=== PATIENT | male | born 1975 | race Caucasian/White ===

== ENCOUNTER 2016-07-07 16:17 | Observation (INO) ==
[2016-07-07] MEDS ORDERED: DILTIAZEM 50 MG/10 ML VIAL IV STA (17:19)
--- NOTE | 2016-07-07 17:24 | EKG Report ---
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
--- NOTE | 2016-07-07 17:25 | Emergency Department Note ---
Arrival - Arrival Chief Complaint: Shortness of Breath Stated Complaint: sob,chest pain,low BP,high Pulse ED Nursing Triage Note: C/O SOB WITH HEART FEELING IT GOES FAST AND SLOWS DOWN. PT ALSO GOT DIZZY IN TRIAGE. Mode of Arrival: Wheelchair Limitations: No Limitations Source: Patient Time Seen by Provider: 07/07/16 17:19 - History of Present Illness HPI Narrative: This 40-year-old white male presents for a history of onset of sensation of rapid heartbeat and palpitations soon after waking this morning. The patient states he has had no prior history of tachyarrhythmias and in fact was seen by a physician 2 days ago where he was diagnosed with strep throat and begun on penicillin with no comment made on heart rate or rhythm. Of note the patient does have ADHD and is on Adderall. He attempted to resolve the issue by taking easy and resting however he had other symptoms arise including dizziness and difficulty formulating sentences from his thoughts. However, this is in the context of being very anxious and somewhat scared. At the moment he states expressing himself is not a problem. He denies any visual changes, headache, or focal deficits. Of note he does state since he was a young child, he has had periods of brief rapid heart irregularities but thought nothing of it, thinking this was just normal. He denies any shortness of breath, chest pain, nausea, vomiting, history of thyroid disorders, or illicit drug use. He currently is quite anxious but is otherwise in no acute distress. Onset (ago): hour(s) (patient presents 12 hours post onset of symptoms) Consistency: constant Allergies/Adverse Reactions: Allergies Allergy/AdvReac Type Severity Reaction Status Date / Time No Known Allergies Allergy Unverified 07/07/16 16:49 Home Medications: Home Medications Medication Instructions Recorded Confirmed Type Dextroamphetamine/Amphetamine 20 mg PO BID 07/07/16 07/07/16 History [Adderall 20 mg Tablet] Rabeprazole Sodium [Aciphex Tab] 20 mg PO DAILY 07/07/16 07/07/16 History Review of System - Review of System 12 point system: reviewed and no additional remarkable complaints except as stated - Review of System Constitutional: Present: as per HPI Respiratory: Present: as per HPI Cardiovascular: Present: as per HPI Genitourinary male: Present: as per HPI Neurological: Present: as per HPI Medical,Surgical,& Family Hx - Medical History Psychological: History of: ADHD (on Adderall) - Family History Family History: Reports;: Family Diabetes - Social History Smoking Status: Never smoker Frequency of Alcohol Use: Occasionally Type of Drug Use: None Marital Status: Single Lives With:: Spouse Functional capacity: independent ambulation Exam Physical Examination: GENERAL: Well developed, well nourished anxious white male in no acute distress. HEENT: Normocephalic. No trauma. Moist mucous membranes. EOMI. PERRLA. ENT clear NECK: Supple. No adenopathy. CARDIAC: Irregular tachycardia at 135. No murmurs. CHEST: Clear to auscultation. No respiratory distress. ABDOMEN: Soft. Nontender. Active bowel sounds. EXTREMITIES: No trauma. Normal ROM. No pedal edema. SKIN: No diaphoresis. No rash. NEURO: Alert. Oriented 3. Motor, sensory, vibratory intact. No focal deficits. Vital Signs: Vital Signs Temperature 98.8 F 07/07/16 16:49 Pulse Rate 118 H 07/07/16 16:49 Respiratory Rate 20 07/07/16 16:49 Blood Pressure 127/112 07/07/16 16:49 O2 Sat by Pulse Oximetry 98 07/07/16 16:49 Course - Reevaluation(s) Reevaluation #1: Discussed with patient the need for hospitalization given new-onset atrial fibrillation. - Consultations Consultation #1: Discussed with Dr. Pickett, cardiology, who will admit for further evaluation and treatment. Results - Labs CBC & BMP: 07/07/16 17:44 07/07/16 17:44 Labs: I have reviewed the laboratory and noted its normalcy. - Diagnostic Findings Procedure: Chest x-ray: image reviewed by me, report reviewed by me (acute disease but abnormal mediastinal contour on portable film), CT: image reviewed by me, report reviewed by me (no acute disease but air-fluid levels in the sphenoid and maxillary sinuses.) Disposition Clinical Impression: new-onset atrial fibrillation, sinusitis Case discussed with: patient Disposition: Still a Patient Condition: Stable Time of Disposition: 19:11
[2016-07-07] MEDS ORDERED: DILTIAZEM 50 MG/10 ML VIAL IV ONE (17:43)
--- NOTE | 2016-07-07 17:55 | CT Report ---
History is atrial fibrillation and aphasia The ventricles are normal in size No acute intracranial hemorrhage or mass effect seen The cervical or tonsils are at the foramen magnum. Streak artifact overlies the umer There is mucosal thickening and fluid in the sphenoid and maxillary sinuses Impression: Paranasal sinus disease without acute intracranial pathology seen PROCEDURE INTERPRETED AT [facility] DEPARTMENT OF RADIOLOGY Final Report Signed by: Dr. Demi Marcano
[2016-07-07 17:57] LABS: Basophils % 0.1 % (0.0-0.8); Eosinophils % 0.4 % (0.00-10.9); Hemoglobin 13.9 GM/DL (14.0-18.0); Immature Granulocytes % 0.4 %; Immature Granulocytes Absolute 0.03 #; Lymphocytes # 1.9 10*3/uL (1.4-4.0); Lymphocytes % 22.5 % (21.2-54.2); Mean Corpuscular HGB Conc 33.9 GM/DL (32-36); Mean Corpuscular Hemoglobin 29 PG (27-34); Mean Corpuscular Volume 86.3 FL (87-102); Mean Platelet Volume 9.3 FL (9.6-12.0); Monocytes # 0.5 10*3/uL (0.11-0.8); Monocytes % 6.3 % (1.7-12.7); Neutrophils # 5.9 10*3/uL (1.4-7.4); Neutrophils % 70.3 % (38.7-73.9); Platelet Count 229 10*3/uL (130-400); Red Blood Count 4.75 10*6/uL (3.8-5.5); Red Cell Distribution Width 11.9 % (9.3-17.3); White Blood Count 8.4 10*3/uL (4.5-13.71)
--- NOTE | 2016-07-07 17:57 | XRay Report ---
History is short of breath The heart is normal in size There is soft tissue fullness in the region the ascending aorta. Hilar contours felt to be related to vasculature No congestive failure or confluent infiltrates seen Impression: Mediastinal contour abnormality most likely related to prominence of the ascending aorta which can be seen with hypertension or sequelae of aortic valve disease. Upright PA and lateral chest film suggested. Comparison with any available prior studies would certainly be helpful as well PROCEDURE INTERPRETED AT [facility] DEPARTMENT OF RADIOLOGY Final Report Signed by: Dr. Demi Marcano
[2016-07-07 18:13] LABS: PT Patient Result 10.1 SECS; Partial Thromboplastin Time 26.4 SECS (0-40)
[2016-07-07] MEDS ORDERED: LEVOFLOXACIN 750 MG TABLET PO STA (18:13)
[2016-07-07] MEDS ORDERED: methylPREDNISolone SOD SUC 125 MG/2 ML VIAL IV STA (18:14)
[2016-07-07 18:24] LABS: Troponin I Only < 0.015 NG/ML (0.00-0.045)
[2016-07-07 18:30] LABS: Albumin 3.8 G/DL (3.4-5.0); Bilirubin,Total 0.6 MG/DL (0.2-1.0); Calcium 8.9 MG/DL (8.5-10.1); Osmolality,Calculated 287.7 MOS/KG (273-304); Potassium 4.2 MMOL/L (3.5-5.1); Thyroid Stimulating Hormone 1.43 uIU/ml (0.358-3.74); Total Protein 7.3 G/DL (6.4-8.3)
[2016-07-07] MEDS ORDERED: LEVOFLOXACIN 750 MG TABLET ONE (18:37)
[2016-07-07] MEDS ORDERED: methylPREDNISolone SOD SUC 125 MG/2 ML VIAL ONE (18:37)
--- NOTE | 2016-07-07 19:08 | XRay Report ---
Chest, 2 views History is mediastinal contour abnormality 07/07/2016 at 6:45 PM The heart is normal in size. Previously seen soft tissue density in the right superior mediastinum has a less pronounced appearance than the prior study. At least some of the residual density is felt be related to a prominent manubrium. Residual density in this area could be related to normal vasculature. No persistent soft tissue prominence in the right paratracheal stripe seen No acute infiltrate is seen impression: Prior soft tissue density at the right superior mediastinum has a much less prominent appearance and is now felt to be related to manubrium and normal vasculature. PROCEDURE INTERPRETED AT [facility] DEPARTMENT OF RADIOLOGY Final Report Signed by: Dr. Demi Marcano
[2016-07-07] MEDS ORDERED: ONDANSETRON 4 MG/2 ML VIAL IV PRN (19:14)
[2016-07-07] MEDS ORDERED: DILTIAZEM 100 MG VIAL.ADD IV ONE (19:32)
[2016-07-07] MEDS ORDERED: SODIUM CHLORIDE 0.9% 100 ML IV ONE (19:33)
[2016-07-07] MEDS ORDERED: DILTIAZEM INJ 100 MG in SODIUM CHLORIDE 0.9% 100 ML IV SCH (20:00)
[2016-07-07] MEDS ORDERED: MAGNESIUM SULF RIDER 2 GM in PREMIX 1 EACH IV ONE (21:03)
--- NOTE | 2016-07-07 21:21 | EKG Report ---
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
[2016-07-07] MEDS: DILTIAZEM 30 MG TABLET PO SCH (21:48)
[2016-07-07] MEDS: ASCORBIC ACID 500 MG TABLET PO SCH (21:49)
[2016-07-07] MEDS: LORazepam 1 MG TABLET PO SCH (23:07)
[2016-07-08 05:50] LABS: Calcium 8.9 MG/DL (8.5-10.1); Magnesium 2.1 MG/DL (1.8-2.4); Potassium 4.5 MMOL/L (3.5-5.1)
[2016-07-08] MEDS ORDERED: LEVOFLOXACIN 750 MG TABLET PO SCH ×2 (09:00)
[2016-07-08] MEDS: LORazepam 1 MG TABLET PO SCH (10:10)
[2016-07-08] MEDS: ASCORBIC ACID 500 MG TABLET PO SCH (10:10)
[2016-07-08] MEDS: DILTIAZEM 30 MG TABLET PO SCH (10:10)
--- NOTE | 2016-07-08 10:34 | Cardiology History & Physical ---
Assessment and Plan (1) Paroxysmal atrial fibrillation Status: Acute Assessment and plan: The patient converted back to sinus rhythm with the addition of magnesium and vitamin C to his medical regimen. I want to continue this as an outpatient. This is his first diagnosed episode of atrial fibrillation. He has a chads score of 0. We'll give him aspirin as stroke prophylaxis. I would like him to limit his caffeine intake. I would like for him to discuss alternative methods for treating his ADHD with his family physician, as the Adderall could increase the risk of him having an arrhythmia. I think he would benefit from stopping the proton pump inhibitor because this can interfere with magnesium absorption, and low magnesium can be associated with A. fib. He could use an H2 adria such as Zantac or Pepcid. Since he is converted back to sinus rhythm and is feeling well and think we can discharge him home and follow-up in a few weeks in the clinic. Current Visit: Yes (2) ADHD (attention deficit hyperactivity disorder) Status: Acute Current Visit: Yes (3) Insomnia Status: Acute Current Visit: Yes (4) GERD (gastroesophageal reflux disease) Status: Acute Current Visit: Yes History of Present Illness History of present illness: Mr. Mackey is a 40 year old male with a history of ADHD and esophageal reflux. He got admitted yesterday after he had onset of tachycardia and palpitations with heart rates around 150. He's had this on rare occasions in the past but would only last for a few minutes before resolving. When his symptoms didn't resolve he came into the emergency room was discovered to be in atrial fibrillation with rapid ventricular response. His symptoms were moderate to severe and lasted for several hours before improving with IV diltiazem in the emergency room. He had associated fatigue and dyspnea. He did not have any syncope, orthopnea, or peripheral edema. He has not had any anginal symptoms. He has no previously diagnosed episodes of atrial fibrillation. He denies any previous cardiovascular history. He does not have any history of hypertension or other cardiovascular medical problems. Overnight, the patient's rhythm converted back to normal sinus And he is now feeling completely back to normal. Of note, the patient does use caffeine, drinking 2-3 cups of coffee a day. He also takes Adderall in the evenings for ADD. This could also play a role. The patient is report that he doesn't sleep very well, but he doesn't have any specific symptoms of sleep apnea. This could also play a role. He recently started a proton pump inhibitor, which was given to him by an ENT specialist after he had some hoarseness after being intubated for a gallbladder surgery. Apparently there was some suspicion that he was having some reflux that was causing the hoarseness. The patient's magnesium was initially low, and is possible that the proton pump inhibitor could be limiting his absorption of magnesium. This also could play a role in his paroxysmal atrial fibrillation. Home Medications Medication Instructions Recorded Confirmed Type Dextroamphetamine/Amphetamine 20 mg PO BID 07/07/16 07/07/16 History [Adderall 20 mg Tablet] Rabeprazole Sodium [Aciphex Tab] 20 mg PO DAILY 07/07/16 07/07/16 History Allergies Allergy/AdvReac Type Severity Reaction Status Date / Time No Known Allergies Allergy Unverified 07/07/16 16:49 12 point system: reviewed and no additional remarkable complaints except as stated Medical,Surgical,& Family Hx - Medical History Psychological: History of: ADHD (on Adderall) Gastrointestinal: History of: GERD - Surgical History Neurologic Surgeries: Patient denies: Neurologic Surgery - Family History Family History: Reports;: Family Diabetes (father), Family Heart Disease ( mother HTN and MN), Family Stroke (father TIA) - Social History Smoking Status: Never smoker Frequency of Alcohol Use: Frequently Type of Drug Use: None Cardiology Physical Exam - Constitutional Vitals: Vital Signs Temp Pulse Resp BP Pulse Ox 98.9 F 83 20 126/71 99 07/08/16 08:00 07/08/16 08:00 07/08/16 08:00 07/08/16 08:00 07/08/16 08:00 Intake and Output 07/07/16 07/08/16 07/08/16 23:59 07:59 15:59 Intake Total 240 / 240 120 / 120 80 / 80 Output Total 300 / 300 Balance 240 / 240 -180 / -180 80 / 80 Intake: IV 80 / 80 Cardizem Inj 100 mg In Ns 80 / 80 100 ml @ 5 MG/HR 5 mls/ hr IV TITRATE [facility] Rx#: [id number] Oral 240 / 240 120 / 120 Output: Urine 300 / 300 Other: Voiding Method Urinal Urinal Weight 89.358 kg Exam: General: Appears well developed, well nourished, no apparent distress HEENT: Normocephalic, atraumatic Neck: Supple Neck, Midline Trachea, No Bruit, No JVD Cardiac: Reg Rate and Rhythm, No Murmur, no gallop, no rub Lungs: Clear to auscultation, No Wheeze, Rales, Rhonchi Neuro: Cranial Nerve 2-12 Intact, Motor Function Grossly Intact Abdomen: Soft, Active Bowel Sounds, No Masses, No Pulsations/Bruits Skin: Normal color, no rash Extremities: No Clubbing, No Cyanosis, No Edema, Normal Upper Extr. Pulses Musculoskeletal: No acute abnormality noted Psychiatric: The patient does not appear to be anxious or depressed Result/EKG - Labs CBC & BMP: 07/07/16 17:44 07/08/16 04:50 Lab Results: I have reviewed the past 24 hour labs Labs: Laboratory Results - last 24 hr 07/08/16 04:50 Sodium 143 Potassium 4.5 Chloride 106 Carbon Dioxide 27 Anion Gap 14.5 BUN 15 Creatinine 0.90 GFR Calculation 135 BUN/Creatinine Ratio 16.00 Glucose 161 H Calculated Osmolality 288.0 Calcium 8.9 Magnesium 2.1 - EKG EKG results: interpreted by me
--- NOTE | 2016-07-08 10:39 | Discharge Summary ---
Hospital Course - Hospital Course Hospital Course: Patient has a history of ADHD and gaseous off her reflux, on Adderall and a proton pump inhibitor, who came into the hospital with the onset of atrial fibrillation which lasted several hours. On a diltiazem drip, after receiving magnesium and vitamin C converted back to sinus rhythm. He is now feeling completely back to normal. His chads score is 0. I think we can discharge him home. I'm going to have him take an [id number] magnesium supplement, vitamin C 1000 g by mouth twice a day, and I would like for him to stop the proton pump inhibitor and try an H2 adria. I also would like him to reduce his caffeine consumption, and discuss with his family physician whether there are alternative regimens for managing his ADHD. I think the Adderall could increase his risk of arrhythmia. In addition, he has insomnia. I suggested that he Theanine and/or melatonin as OTC safe ways to improve his sleep. He does not have symptoms of sleep apnea. I also think getting rid of the Adderall may help with his sleep. Diagnosis - Discharge Diagnosis (1) Paroxysmal atrial fibrillation Status: Acute (2) ADHD (attention deficit hyperactivity disorder) Status: Acute (3) Insomnia Status: Acute (4) GERD (gastroesophageal reflux disease) Status: Acute Discharge Plan - Discharge Data Disposition: Disch To Home/Self Care - Discharge Medications New Ascorbic Acid [Vitamin C] 1,000 mg PO BID #60 tablet Magnesium Chloride [Slow Mag] 64 mg PO BID #60 tablet Continue Dextroamphetamine/Amphetamine [Adderall 20 mg Tablet] 20 mg PO BID Discontinued Rabeprazole Sodium [Aciphex Tab] 20 mg PO DAILY - Follow Up or Referral Follow Up: Braulio Pickett MD [Physician] - 2 Weeks (With BMP, magnesium, vitamin D, and EKG) - Forms/Instructions Exam - Constitutional Vitals: Period Temp Pulse Resp BP Sys/Doyle Pulse Ox Last 24 Hr 97.3 F-98.9 F 83-120 20-20 103-126/65-71 96-99 Discharge Results Labs on day of discharge: Labs from last 24 hours 07/08/16 04:50 Sodium 143 Potassium 4.5 Chloride 106 Carbon Dioxide 27 Anion Gap 14.5 BUN 15 Creatinine 0.90 GFR Calculation 135 BUN/Creatinine Ratio 16.00 Glucose 161 H Calculated Osmolality 288.0 Calcium 8.9 Magnesium 2.1 DS: Provider Date of admission: 07/07/16 19:12 Primary care physician: . No PCP Attending physician on admission: Braulio Pickett MD Discharging clinician: Braulio Pickett MD
[2016-07-08 12:27] VITALS: BP 132/75
--- NOTE | 2016-07-09 16:25 | ECHO Report ---
Uriah Mackey Exam Date: 07/08/2016 10:12 Referring Physician: Technologist: Destiny Cho RDCS Age: 40 Ht (in): Wt (lb): Gender: M Exam Location: [facility] Echo Indications: Atrial fibrillation, Shortness of breath, Other fatigue, ADHD, Insomnia, GERD BP: / HR: Rhythm: Sinus Technical Quality: Good IMPRESSIONS Left ventricular ejection fraction is estimated at 65 %. Mild left ventricular hypertrophy. Mildly increased right ventricular size. Mild tricuspid valve regurgitation. Tricuspid regurgitation velocities suggest a PAP of 36 mmHg. The left atrium is mildly enlarged. MEASUREMENTS (Male / Female) Normal Values 2D ECHO LV Diastolic Diameter PLAX 4.7 cm 4.2 - 5.9 / 3.9 - 5.3 cm LV Systolic Diameter PLAX 2.4 cm LV Fractional Shortening PLAX 48.1 % IVS Diastolic Thickness 1.1 cm 0.6 - 1.0 / 0.6 - 0.9 cm LVPW Diastolic Thickness 1.1 cm 0.6 - 1.0 / 0.6 - 0.9 cm RV Internal Dim ED PLAX 3.0 cm Aortic Root Diameter 3.5 cm LA Systolic Diameter LX 4.5 cm 3.0 - 4.0 / 2.7 - 3.8 cm DOPPLER TR Peak Velocity 257.0 cm/s TR Peak Gradient 26.4 mmHg FINDINGS Left Ventricle Normal left ventricular cavity size. Mild left ventricular hypertrophy. Left ventricular ejection fraction is estimated at 65 %. Right Ventricle Mildly increased right ventricular size. Right Atrium The right atrium is mildly enlarged. Left Atrium The left atrium is mildly enlarged. Mitral Valve Morphologically normal mitral valve without significant stenosis or prolapse. There is no mitral regurgitation. Aortic Valve Morphologically normal aortic valve without significant sclerosis or stenosis. There is no aortic regurgitation. Tricuspid Valve Morphologically normal tricuspid valve. Mild tricuspid valve regurgitation. Tricuspid regurgitation velocities suggest a PAP of 36 mmHg. Pulmonic Valve Morphologically normal pulmonic valve without significant stenosis. There is no pulmonic regurgitation. Pericardium Normal pericardium without effusion. Aorta Normal ascending aorta dimension. Rufus Gudino MD (Electronically Signed) Final Date: 09 July 2016 16:24
== END 2016-07-08 12:30 | disposition home or self-care (01) ==
LOC: N.ED 16:17 → N.EDINP 19:12 → INTOOBSV 19:12 → N.TELEN 19:40
PROVIDERS: ADMIT Internal Medicine Cardiovascular Disease; ATTEND Internal Medicine Cardiovascular Disease